=== PATIENT | female | born 1995 | race Two or more races ===

== ENCOUNTER 2017-05-14 10:14 | Emergency (ER) | payer MEDICAID ==
[~2017-05-14] VITALS: Ht 170.2 cm; Wt 90.7 kg
[2017-05-14 10:59] VITALS: BP 131/78
[2017-05-14] MEDS ORDERED: cefTRIAXone SOD 1,000 MG VL ONE (11:16)
[2017-05-14] MEDS ORDERED: LIDOCAINE 2%HCL (LOCAL ANESTH.) INJ 20ML MDV IJ ONE (11:45)
[2017-05-14] MEDS ORDERED: cefTRIAXone W LIDOCAINE 1 GM IM IM ONE (11:45)
== END 2017-05-14 11:56 | disposition home or self-care (01) ==
LOC: ER 10:14
DX: O26.891 Other specified pregnancy related conditions, first trimester (principal); H66.91 Otitis media, unspecified, right ear; J03.90 Acute tonsillitis, unspecified; Z32.01 Encounter for pregnancy test, result positive
CPT/HCPCS: 96372; 96374; 99284; J0696